=== PATIENT | male | born 1965 | race Caucasian/White ===

== ENCOUNTER → 2019-04-26 08:20 | Outpatient (CLI) | payer BC, SELFPAY ==
--- NOTE | 2019-04-26 08:27 | XR_ITS ---
XR chest 2V HISTORY: ITS.REASON: CHEST PAIN ORDERING PHYSICIAN: Eduardo Gonzalez PATIENT AGE: 53 years COMPARISON: None FINDINGS: The cardiomediastinal silhouette and pulmonary vascularity are within normal limits. The lungs are clear without infiltrates, suspicious nodules, or pleural effusions. No acute bony abnormalities. IMPRESSION: Negative chest, no acute finding
== END ==
PROVIDERS: PCP Nurse Practitioner Family; Visit Provider Orthopaedic Surgery
DX: R07.9 Chest pain, unspecified (principal)
CPT/HCPCS: 71046; 93005